=== PATIENT | male | born 1945 | race Caucasian/White ===

== ENCOUNTER 2022-03-12 21:58 | Emergency (ER) | payer OTHER ==
[~2022-03-12] VITALS: Ht 165.1 cm; Wt 93.4 kg
[2022-03-12 22:01] VITALS: BP 180/96
--- NOTE | 2022-03-12 22:01 | NUR ---
PT BROUGHT TO BED 11 VIA [facility] POOLE
--- NOTE | 2022-03-12 22:24 | NUR ---
CONNOR GOMEZ AT BEDSIDE
--- NOTE | 2022-03-12 22:26 | NUR ---
JUAN FROM HOME WITH C/C OF HEADACHE. PT DENIES PAIN AT THIS TIME, STATES IT COMES AND GOES. PT REPORTS HE TOOK ALL BP MEDS TODAY AND BP IS STILL HIGH, EMS GAVE BP OF 190/80, BP AT THIS TIME IS 180/96. DENIES BLURRED VISION REPORTS RINGING IN EAR. HX:DM, HYPERLIPIDEMIA, BPH, HTN RX: LYRICA, METOPROLOL, METFORMIN,
[2022-03-12 23:05] LABS: ANION GAP 10.4 (8-16); CARBON DIOXIDE 27.6 mmol/L (21-32); CHLORIDE 97 mmol/L (98-107); CREATININE 0.9 mg/dL (0.6-1.3); GLUCOSE 107 mg/dL (74-106); SODIUM SERUM 131 mmol/L (136-145); UREA NITROGEN, BLOOD 15 mg/dL (7-18)
[2022-03-13 00:06] VITALS: BP 165/82
--- NOTE | 2022-03-13 00:06 | NUR ---
Patient discharged with v/s stable. Written and verbal after care instructions given and explained. Patient verbalized understanding. Ambulatory with steady gait. All questions addressed prior to discharge. Advised to follow up with PMD.
== END 2022-03-13 00:06 | disposition home or self-care (01) ==
LOC: MED 21:58
DX: I10 Essential (primary) hypertension (principal); E11.9 Type 2 diabetes mellitus without complications; Z79.4 Long term (current) use of insulin; Z79.899 Other long term (current) drug therapy
CPT/HCPCS: 36415; 80048; 93005; 99284

== ENCOUNTER 2022-03-15 08:57 | Emergency (ER) | payer OTHER ==
[~2022-03-15] VITALS: Ht 170.2 cm; Wt 90.7 kg
[2022-03-15 09:03] VITALS: BP 183/94
--- NOTE | 2022-03-15 09:18 | NUR ---
76/M BIBA FROM HOME CALLED BY FAMILY FOR ALTERED AND CONFUSED SINCE PM YESTERDAY. PER EMS, FAMILY STATES BASELINE AOX4. STATES PATIENT WAS NOT ANSWERING QUESTIONS APPROPRIATELY. AAOX4 AT BEDSIDE, DENIES ANY PAIN AT THIS TIME BUT STATES FEELING ANXIOUS. PMH: HTN, DM, HX OF CVA NKA
[2022-03-15 09:24] VITALS: BP 175/89
--- NOTE | 2022-03-15 09:36 | NUR ---
CONTACT INFO FOR FAMILY: [phone]
[2022-03-15] MEDS ORDERED: LORazepam 0.5 MG TAB PO ONE (09:50)
[2022-03-15] MEDS ORDERED: ZOLP5TAB1 PO (10:05)
--- NOTE | 2022-03-15 10:46 | NUR ---
Patient discharged with v/s stable. Written and verbal after care instructions given and explained. Patient verbalized understanding. Ambulatory with steady gait. All questions addressed prior to discharge. Advised to follow up with PMD. ACCOMPANIED BY CAREGIVER
== END 2022-03-15 10:46 | disposition home or self-care (01) ==
LOC: MED 09:15
DX: G47.00 Insomnia, unspecified (principal); F41.9 Anxiety disorder, unspecified; I10 Essential (primary) hypertension; E11.42 Type 2 diabetes mellitus with diabetic polyneuropathy; Z79.899 Other long term (current) drug therapy
CPT/HCPCS: 93005; 99283